=== PATIENT | female | born 1960 | race Caucasian/White ===

== ENCOUNTER → 2018-12-17 09:07 | Outpatient (CLI) | payer BC ==
--- NOTE | 2018-12-19 14:03 | ST ---
PATIENT:SALOME HANKS MEDICAL RECORD: [id number] SEX: F LOCATION:[facility] ORDER #: ADMISSION DATE: 12/17/18 AGE OF PATIENT: 58 REFERRING PHYSICIAN: INTERPRETING PHYSICIAN: JONATHAN CARO MD DATE OF SERVICE: 12/17/2018 PROCEDURE: Treadmill stress test. Exercised for 8 minutes 27 seconds on Anurag protocol, maximum heart rate 154 beats per minute, greater than 85% max predicted. No ECG changes of ischemia. No symptoms of ischemia. Normal blood pressure response to exercise. No arrhythmias noted. Good exercise tolerance for age. TRANSINT:[id number] Voice Confirmation ID: [id number] DOCUMENT ID: [id number] JONATHAN CARO MD at 1403 CC: [id number] DICTATION DATE: 12/18/18 1256 REHABILITATION SUPERVISOR: 12/18/18 1303 DEP CLI 12/17/18 [id number] [place] [address]
== END | disposition home or self-care (01) ==
LOC: D.HCCARDIO 09:07
PROVIDERS: ATTEND Internal Medicine Interventional Cardiology
DX: I20.9 Angina pectoris, unspecified (principal)